=== PATIENT | female | born 1970 | race African-American/Black ===

== ENCOUNTER 2019-12-14 13:55 | Emergency (ER) | payer OTHER ==
[~2019-12-14] VITALS: Ht 160 cm; Wt 63.0 kg
[2019-12-14 14:01] VITALS: BP 125/85
== END 2019-12-14 15:10 | disposition left against medical advice (07) ==
LOC: ER 13:55
DX: Z53.21 Procedure and treatment not carried out due to patient leaving prior to being seen by health care provider (principal)